=== PATIENT | female | born 1960 | race Caucasian/White ===

== ENCOUNTER → 2022-06-14 12:39 | Outpatient (CLI) | payer MEDICAID, SELFPAY ==
--- NOTE | 2022-06-14 12:51 | XR_ITS ---
FINAL REPORT CLINICAL HISTORY: ankle pain FINDINGS: AP, oblique, and lateral views of the left ankle were obtained. There is no prior exam for comparison. There is no fracture or dislocation. The ankle mortise is intact. There is degenerative joint disease. Soft tissues are normal. IMPRESSION: No acute osseous abnormality of the left ankle. Reviewed, Interpreted and Dictated by Amanda Plummer MD Transcribed by Clark Diaz Authenticated and [facility]
--- NOTE | 2022-06-14 12:51 | XR_ITS ---
FINAL REPORT CLINICAL HISTORY: foot pain FINDINGS: AP, oblique and lateral views of the left foot were obtained. There is no prior exam for comparison. There is no acute fracture or dislocation. 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 There is early collapse of the midfoot arch. IMPRESSION: No acute osseous abnormality of the left foot. Reviewed, Interpreted and Dictated by Amanda Plummer MD Transcribed by Clark Diaz Authenticated and [facility]
--- NOTE | 2022-06-14 12:51 | XR_ITS ---
FINAL REPORT CLINICAL HISTORY: foot pain FINDINGS: AP, oblique and lateral views of the right foot were obtained. There is no prior exam for comparison. There is deformity of the head of the great toe proximal phalanx likely due to old fracture. There is no acute fracture or dislocation. There is multi joint degenerative disease. There is subtle early collapse of the midfoot arch. IMPRESSION: No acute osseous abnormality of the right foot. Reviewed, Interpreted and Dictated by Amanda Plummer MD Transcribed by Clark Diaz Authenticated and [facility]
--- NOTE | 2022-06-14 12:51 | XR_ITS ---
FINAL REPORT CLINICAL HISTORY: ankle pain FINDINGS: AP, oblique, and lateral views of the right ankle were obtained. There is no prior exam for comparison. There is no fracture or dislocation. The ankle mortise is intact. There is degenerative joint disease. Soft tissues are normal. IMPRESSION: No acute osseous abnormality of the right ankle. Reviewed, Interpreted and Dictated by Amanda Plummer MD Transcribed by Clark Diaz Authenticated and [facility]
== END ==
PROVIDERS: Visit Provider Podiatrist
DX: M25.571 Pain in right ankle and joints of right foot (principal); M25.572 Pain in left ankle and joints of left foot; M79.672 Pain in left foot; M79.671 Pain in right foot
CPT/HCPCS: 73610; 73630